=== PATIENT | female | born 1985 | race Caucasian/White ===

== ENCOUNTER 2020-01-22 08:24 | Inpatient (IN) | payer BC ==
[~2020-01-22] VITALS: Ht 162.6 cm; Wt 62.0 kg
--- NOTE | ~2020-01-22 | OR ---
[facility] [address] [place], [place] [address] Draft DATE OF OPERATION: 01/23/2020 SURGEON: Edita Chaney DO PREOPERATIVE DIAGNOSIS: Retained placenta following 2nd trimester demise. POSTOPERATIVE DIAGNOSES: Retained placenta following 2nd trimester demise. PROCEDURE PERFORMED: Dilation and curettage. ANESTHESIA: General. ESTIMATED BLOOD LOSS: 400 mL. SPECIMENS: Products of conception. FINDINGS: Placenta prolapsing through dilated cervix into the vagina with scant bleeding at the beginning of the case. Adherent placenta to the right lateral portion of the uterine cavity. Bleeding initially quite brisk and appeared to have general curettage, removal of all products of conception, bimanual massage, tranexamic acid 1 g IV, and Pitocin 60 units bolused and 1 liter of lactated Ringer's. Uterus involuted and firm with no bleeding at completion of the case. COMPLICATIONS: None. INDICATIONS: Ms. Morales is a pleasant 34-year-old, G5, P1-1-3-2 with an early 2nd trimester demise at approximately 13-14 weeks gestation. The patient was admitted for induction and received several doses of Cytotec. The fetus was then delivered, but placenta did not initially deliver. Expectant management was observed for 4 hours and bleeding was overall fairly light during that time. However, placenta did not deliver and we discussed the necessity of operative management with dilation and curettage. The risks, PATIENT NAME: JEAN CLAUDE MORALES OPERATIVE REPORT DATE OF : 83 REPORT #: [id number] PHYSICIAN: EDITA CHANEY DO PCP: XANDER REAL MD REPORT IS CONFIDENTIAL AND NOT TO BE RELEASED WITHOUT AUTHORIZATION [facility] [address] [place], [place] [address] Draft benefits, and alternatives were discussed in detail with the patient. The patient understands and wishes to proceed with the procedure. DESCRIPTION OF PROCEDURE: The patient was taken to the operating room and time-out was performed to confirm correct patient, correct procedure. General anesthesia was adequately established. The patient was prepped and draped in the dorsal lithotomy position with feet in Yellofin stirrups. ICPs were on and running. 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 ICPs were on and running. A weighted speculum was placed in vagina and placenta was again noted to be prolapsing through an open cervix into the uterine cavity. The placenta was grasped with two ring forceps and the placenta was attempted to be delivered with gentle teasing of the placental tissue. Majority of placenta then delivered, but noted to have retained placental tissue. Bleeding was somewhat brisk at this point and curettage was then performed. The cervix was already dilated and excepted a large uterine curette. This was advanced gently to the fundus and gentle circumferential curettage was performed. Significant amount of retained and somewhat adherent placenta was noted mostly on the right lateral portion of the uterine cavity. Bleeding was somewhat brisk until all products of conception were removed and bleeding was treated with bimanual massage, tranexamic acid 1 g IV and 60 units of Pitocin bolused and 1 liter of lactated Ringer's. Once all products of conception were removed, the uterus was noted to be involuting, firm and bleeding ceased. The patient was observed for several minutes and remained hemostatic. Products of conception were obtained and sent to pathology and a portion was sent for Anora chromosomal genetic analysis per patient's request. The patient was then taken to the PACU in good and stable condition. Sponge, needle, and instrument counts were correct x2 at the end of the procedure. Edita Chaney DO JDW/MODL /[id number] Copies: PATIENT NAME: JEAN CLAUDE MORALES OPERATIVE REPORT DATE OF : 83 REPORT #: [id number] PHYSICIAN: EDITA CHANEY DO PCP: XANDER REAL MD REPORT IS CONFIDENTIAL AND NOT TO BE RELEASED WITHOUT AUTHORIZATION [address] [place], [place] [address] Draft ~ PATIENT NAME: JEAN CLAUDE MORALES OPERATIVE REPORT DATE OF : 83 REPORT #: [id number] PHYSICIAN: EDITA CHANEY DO PCP: XANDER REAL MD REPORT IS CONFIDENTIAL AND NOT TO BE RELEASED WITHOUT AUTHORIZATION
[~2020-01-22 08:24] MED LIST: NAPROXEN500 MG PO; NORCO 5-325 TA1 EACH PO; PRENATAL-FOLIC1 EACH PO; ZOFRAN ODT4 MG PO
--- NOTE | 2020-01-22 13:02 | PR ---
[facility] [address] [facility] [place] [address] Signed Progress Notes IP Datetime Report Generated by CPN: 01/22/2020 13:02 PROGRESS NOTES: [id number] Plan: Continue present management VITAL SIGNS: [id number] Vital Signs: Reviewed; Within Normal Limits EXAM: [id number] Dilatation: closed MEMBRANES: [id number] Comments: Pt seen and evaluated. Doing well. No complaints. Occasional cramping. No questions or concerns. Continue induction as planned Fetus A: [id number] FHR Baseline: N/A Comments on Fetus A: demise Fetus B: [id number] Signing Physician: Edita Chaney DO Copies: ~ *Electronically Signed* 01/22/20 1302 EDITA CHANEY DO PATIENT NAME: JEAN CLAUDE MORALES PROGRESS NOTE DATE OF : 83 PHYSICIAN: EDITA CHANEY DO RPT #: [id number] REPORT IS CONFIDENTIAL AND NOT TO BE RELEASED WITHOUT AUTHORIZATION
--- NOTE | 2020-01-22 17:24 | PR ---
[facility] [address] [facility] [place], [place] [address] Signed Progress Notes IP Datetime Report Generated by CPN: 01/22/2020 17:24 PROGRESS NOTES: [id number] Plan: Continue present management VITAL SIGNS: [id number] Vital Signs: Reviewed; Within Normal Limits EXAM: [id number] Dilatation: closed MEMBRANES: [id number] Comments: Pt seen and examined. Doing well. C/O increased cramping but no bleeding or loss of fluid. S/P 2 doses vaginal cytotec. On exam, cervix still closed and thick. Reviewed anticpated course of induction. Pt and are still undecided on genetic screening. No additional questions or concerns. Fetus A: [id number] FHR Baseline: N/A Comments on Fetus A: N/A Fetus B: [id number] Signing Physician: Edita Chaney DO Copies: ~ *Electronically Signed* 01/22/20 1724 EDITA CHANEY DO PATIENT NAME: JEAN CLAUDE MORALES PROGRESS NOTE DATE OF : 83 PHYSICIAN: EDITA CHANEY DO RPT #: [id number] REPORT IS CONFIDENTIAL AND NOT TO BE RELEASED WITHOUT AUTHORIZATION
--- NOTE | 2020-01-23 00:44 | PR ---
[facility] [address] [facility] [place], [place] [address] Signed PP Progress Notes Datetime Report Generated by CPN: 01/23/2020 00:44 SUBJECTIVE: [id number] Pain: Within normal limits Nausea/Vomiting: Denies Vital Signs: [id number] Vital Signs: Reviewed; Within Normal Limits EXAM: [id number] Exam Comments: see below IMPRESSION/PLAN/PROCEDURES: [id number] Plan: Continue present management Progress Notes: Pt seen and examined. Bleeding light and minimal pain. Speculum exam was performed and moderate amount of blood clot was evacuated from the vagina. Placenta still adherent with gentle probing with ring forceps. Pt afebrile with normal vital signs and light bleeding. Will continue expectant management. If placenta does not deliver spontaneously, will consider uterine currettage. Pt will remain NPO. Reviewed w/ pt and ; all questions answered Signing Physician: Edita Chaney DO Copies: ~ *Electronically Signed* 01/23/20 0044 EDITA CHANEY DO PATIENT NAME: JEAN CLAUDE MORALES PROGRESS NOTE DATE OF : 83 PHYSICIAN: EDITA CHANEY DO RPT #: [id number] REPORT IS CONFIDENTIAL AND NOT TO BE RELEASED WITHOUT AUTHORIZATION
--- NOTE | 2020-01-23 02:47 | PR ---
[facility] [address] [place], [place] [address] Signed PP Progress Notes Datetime Report Generated by CPN: 01/23/2020 02:47 SUBJECTIVE: [id number] Pain: Within normal limits Nausea/Vomiting: Denies Vital Signs: [id number] Vital Signs: Reviewed; Within Normal Limits EXAM: [id number] Cardiovascular: Normal Respiratory: Normal Abdomen/Uterus: Normal Lochia: Abnormal Vulva/Perineum: Normal Extremities: Normal Exam Comments: Speculum exam that shows continued light bleeding. Placenta remains adherent. IMPRESSION/PLAN/PROCEDURES: [id number] Plan: Continue present management Progress Notes: Pt seen and examined. Doing well with continued light bleeding. RN monitoring blood loss by weighing pads. Prior to exam EBL _250cc. On exam, again moderate amount of clots in the vagina that were cleared. Placenta remains adherent to the uterus. Manual extraction was not attempted. Reviewed need for D_C for retained products of conception, and reviewed risks/benefits/alternatives. Risks include but are not limited to infection, bleeding, injury to surrounding GI / structures. We also reviewed risks of Asherman's syndrome including possible decreased fertility/infertility in the future as a result. Also reviewed possibility of additional procedures being required including intrauterine tampanode or hysterectomy. Pt understands and agrees. OR crew notified. Signing Physician: Edita Chaney DO Copies: ~ *Electronically Signed* 01/23/20 0247 EDITA CHANEY DO PATIENT NAME: JEAN CLAUDE MORALES PROGRESS NOTE DATE OF : 83 PHYSICIAN: EDITA CHANEY DO [facility] #: [id number] REPORT IS CONFIDENTIAL AND NOT TO BE RELEASED WITHOUT AUTHORIZATION
--- NOTE | 2020-01-24 11:53 | PATH ---
[facility] [address] [place], [place] [address] Signed SPECIMEN(S): A PRODUCTS OF CONCEPTION SPECIMEN SOURCE: A. PRODUCTS OF CONCEPTION CLINICAL HISTORY: demise and placental retention. FINAL PATHOLOGIC DIAGNOSIS: Products of conception, submitted: - Fragments of fibrotic chorionic villi, consistent with products of conception. DDF:cml:C2NR MICROSCOPIC EXAMINATION: Histologic sections of all submitted blocks are examined by light microscopy. These findings, together with the gross examination, support the pathologic diagnosis. GROSS DESCRIPTION: The specimen, labeled "TB, and designated on the requisition "products of conception,"" is received in formalin and consists of irregular shaped fibromembranous and hemorrhagic tissue fragments that aggregate measure 11.5 x 7.9 x 2.2 cm. No tissues are grossly identified. Utility Arborist sections are submitted in cassette (A1). JS (under the direct supervision of a pathologist) The Gross Description was prepared using a voice recognition system. The report was reviewed for accuracy; however, sound-alike word errors, addition and/or deletions may occur. If there is any question about this report, please contact Client Services. PERFORMING LABORATORY: The technical component was performed by [facility], [address] [place] [id number] (Automatic Equipment Technician: Lazara Mario MD; CLIA# [id number]). [facility], [address] [address] (CLIA# [id number]). Diagnostician: Chris Castaneda DO Pathologist Electronically Signed 01/24/2020 PATIENT NAME: JEAN CLAUDE MORALES PATHOLOGY DATE OF : 83 REPORT #: [id number] PHYSICIAN: MICHELLE PATHOLOGY PCP: XANDER REAL MD REPORT IS CONFIDENTIAL AND NOT TO BE RELEASED WITHOUT AUTHORIZATION [address] [place], [place] [address] Signed Copies: ~ PATIENT NAME: JEAN CLAUDE MORALES PATHOLOGY DATE OF : 83 REPORT #: [id number] PHYSICIAN: DARSHANYTE PATHOLOGY PCP: XANDER REAL MD REPORT IS CONFIDENTIAL AND NOT TO BE RELEASED WITHOUT AUTHORIZATION
== END 2020-01-23 10:07 | disposition home or self-care (01) | DRG 797 ==
LOC: FBC 08:24
PROVIDERS: ADMIT Obstetrics & Gynecology
PROC: 10E0XZZ Delivery of Products of Conception, External Approach (ICD-10-PCS; principal; 2020-01-22)
PROC: 10907ZC Drainage of Amniotic Fluid, Therapeutic from Products of Conception, Via Natural or Artificial Opening (ICD-10-PCS; 2020-01-22)
PROC: 10D17ZZ Extraction of Products of Conception, Retained, Via Natural or Artificial Opening (ICD-10-PCS; 2020-01-23)
DX: O02.1 Missed abortion (principal); O72.0 Third-stage hemorrhage; Z37.1 Single stillbirth; Z3A.13 13 weeks gestation of pregnancy
CPT/HCPCS: 00952; 83036; 85025; 86850; 86870; 86900; 86901; J0690; J1100; J1644; J1885; J2001; J2250; J2405; J2590; J2704; J2790; J3010; J7121